=== PATIENT | female | born 1990 | race Caucasian/White ===

== ENCOUNTER 2018-07-26 11:20 | Emergency (ER) | payer OTHER ==
--- NOTE | 2018-07-26 12:54 | ED Physician Documentation ---
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 has had reaction to touching banana in the past.) Quality / character: Itchy. No: Discolored Improved by: No: Benadryl Associated symptoms: No: Fever, N/V/D Contributing factors: Exposed to food (has had similar reactions to banana since she was a child, even touching one.) Similar symptoms before: Diagnosis (allergy to bananas) Recently seen: Clinic ([place]. She states that a did not give any medication there but called the ambulance to have her transported to our facility. EMS reported her stable en route. She arrives here with adequate oxygenation, respirations, vital signs, and normal phonation.) Review of Systems Constitutional: denies: Fever, Chills Nose: denies: Rhinorrhea / runny nose Throat: denies: Sore throat Respiratory: reports: Dyspnea. denies: Cough GI: denies: Nausea, Vomiting, Diarrhea Skin: denies: Rash, Lesions PD PAST MEDICAL HISTORY - Past Medical History Cardiovascular: None Respiratory: None Neuro: None - Present Medications Home Medications: Ambulatory Orders Medication Instructions Recorded Confirmed Cetirizine [ZyrTEC] 10 mg PO DAILY #5 tablet 07/26/18 Dexamethasone [Decadron] 4 mg PO DAILY #5 tablet 07/26/18 - Allergies Allergies/Adverse Reactions: Allergies Allergy/AdvReac Type Severity Reaction Status Date / Time banana Allergy Respiratory Verified 07/26/18 11:35 PD ED PE NORMAL - Vitals Vital signs reviewed: Yes - General General: Alert and oriented X 3, No acute distress, Well developed/nourished, Other (normal voice sound) - HEENT HEENT: Moist mucous membranes, Pharynx benign (no uvular edema nor swelling of tongue/lips. ) - Neck Neck: Supple, no meningeal sign, No adenopathy - Cardiac Cardiac: RRR, No murmur - Respiratory Respiratory: Clear bilaterally - Derm Derm: Normal color, Warm and dry, No rash - Extremities Extremities: Normal ROM s pain, No edema - Neuro Neuro: Alert and oriented X 3, No motor deficit, Normal speech Results - Vitals Vitals: Vital Signs - 24 hr 07/26/18 07/26/18 07/26/18 11:33 13:34 14:40 Temperature 36.5 C 36.7 C Heart Rate 85 68 64 Respiratory 20 16 16 Rate Blood Pressure 131/76 H 133/97 H 115/63 O2 Saturation 100 100 99 07/26/18 15:08 Temperature 36.4 C L Heart Rate 61 Respiratory 16 Rate Blood Pressure 116/73 O2 Saturation 99 Oxygen O2 Source Room air PD MEDICAL DECISION MAKING - ED course Complexity details: re-evaluated patient (she says she feels better post meds and stays okay in ER. ), considered differential (presumed allergy reaction, though no hives seen (itching subjective) and no uvular edema, but feeling of throat swelling lower. Can treat as allergy reaction and had not improved with Benadryl, so can give epi/steroid. ), d/w patient - Sepsis Event Vital Signs: Vital Signs - 24 hr 07/26/18 07/26/18 07/26/18 11:33 13:34 14:40 Temperature 36.5 C 36.7 C Heart Rate 85 68 64 Respiratory 20 16 16 Rate Blood Pressure 131/76 H 133/97 H 115/63 O2 Saturation 100 100 99 07/26/18 15:08 Temperature 36.4 C L Heart Rate 61 Respiratory 16 Rate Blood Pressure 116/73 O2 Saturation 99 Oxygen O2 Source Room air Departure - Departure Disposition: 01 Home, Self Care Clinical Impression: Acute allergic reaction Qualifiers: Encounter type: initial encounter Qualified Code(s): T78.40XA - Allergy, unspecified, initial encounter Condition: Stable Record reviewed to determine appropriate education?: Yes Instructions: ED Allergic React Food Follow-Up: LYRIC MAST [Primary Care Provider] - Prescriptions: Cetirizine [ZyrTEC] 10 mg PO DAILY #5 tablet Dexamethasone [Decadron] 4 mg PO DAILY #5 tablet Comments: Continue some Benadryl every 6 hours if needed for itching or symptoms. Sometimes the immune reaction will continue at a low level for a day or 2. Commonly will do a long-acting antihistamine and some steroids for several days to inhibit that. Return if worse symptoms again. Forms: Activity restrictions Discharge Date/Time: 07/26/18 15:18
[2018-07-26] MEDS ORDERED: DEXAMETHASONE 10 MG/ML VIAL PO STA (13:20)
[2018-07-26] MEDS ORDERED: CETIRIZINE 10 MG TABLET PO STA (13:20)
[2018-07-26] MEDS ORDERED: EPINEPHrine 1 MG/ML AMP IM STA (13:20)
[2018-07-26] MEDS ORDERED: diphenhydrAMINE INJ 50 MG/ML VIAL IM STA (13:20)
[2018-07-26] MEDS ORDERED: CHERRY SYRUP 10 ML UDC PO ONE (13:23)
[2018-07-26 15:11] VITALS: BP 116/73
== END 2018-07-26 15:18 | disposition home or self-care (01) ==
LOC: ED 11:20
DX: T78.1XXA Other adverse food reactions, not elsewhere classified, initial encounter (principal); X58.XXXA Exposure to other specified factors, initial encounter
CPT/HCPCS: 96372; 99283; A9270; J1200

== ENCOUNTER 2020-04-03 13:30 | Outpatient (CLI) | payer OTHER | END 2020-04-03 13:31 | disposition EMS.NT | LOC: EMS 13:30 | PROVIDERS: ATTEND Surgery | DX: M79.631 Pain in right forearm (principal); M54.89 Other dorsalgia; V43.62XA Car passenger injured in collision with other type car in traffic accident, initial encounter; Y92.411 Interstate highway as the place of occurrence of the external cause ==

== ENCOUNTER 2020-04-03 14:18 | Emergency (ER) | payer OTHER ==
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
[2020-04-03 15:52] VITALS: BP 122/83
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
== END 2020-04-03 16:36 | disposition home or self-care (01) ==
LOC: ED 14:18
DX: S46.911A Strain of unspecified muscle, fascia and tendon at shoulder and upper arm level, right arm, initial encounter (principal); V49.40XA Driver injured in collision with unspecified motor vehicles in traffic accident, initial encounter; Y93.89 Activity, other specified
CPT/HCPCS: 29105; 71046; 99284

== ENCOUNTER 2023-10-14 12:27 | Emergency (ER) | payer OTHER ==
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
[2023-10-14 14:41] VITALS: BP 130/88; O2SAT 98
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
== END 2023-10-14 14:36 | disposition home or self-care (01) ==
LOC: ED 12:27
DX: S83.92XA Sprain of unspecified site of left knee, initial encounter (principal); W10.9XXA Fall (on) (from) unspecified stairs and steps, initial encounter; Y93.01 Activity, walking, marching and hiking
CPT/HCPCS: 99283

== ENCOUNTER 2024-02-28 07:59 | Outpatient (CLI) | payer OTHER ==
--- NOTE | 2024-02-28 14:20 | MRI Report ---
PROCEDURE: Knee LT WO INDICATIONS: LEFT KNEE PAIN TECHNIQUE: Noncontrast sagittal PD fast spin echo and T2 fast spin echo with fat saturation, sagittal 3-D gradie nt sequence with fat saturation; coronal T1 spin echo and PD fast spin echo with fat saturation, and axial PD fast spin echo with fat saturation through the knee. COMPARISON: Left knee radiograph dated 10/14/2023. FINDINGS: Image quality: Excellent. Menisci: The medial and lateral menisci demonstrate normal morphology and internal signal. The meni scal root ligaments appear intact. Cruciate ligaments: The anterior and posterior cruciate ligaments appear intact. Medial structures: The medial collateral ligament appears intact. Visualized portions of the pes ans erinus tendons appear normal. No abnormal bursal fluid. Lateral structures: The lateral collateral ligament is thickened at its femoral insertion. The long and short heads of the biceps femoris tendon appear intact. The popliteus tendon appears normal. Rocio otibial band appears normal. Anterior structures: Distal quadriceps tendinosis at its superior patella insertion is seen. Proximal patella tendinosis at its inferior patellar insertion is also noted. Patellar alignment is normal. No femoral trochlear dysplasia or ventral trochlear prominence. No edema in the infrapatellar fat pa d. Bones and cartilage: No bone marrow contusions or fractures. Low-grade chondromalacia in medial femo ral tibial compartment and lateral facet of patella cartilage is seen. Joint space: There is small knee joint fluid. No Kumar's cyst. Normal appearing synovial plicae ar e incidentally noted. IMPRESSION: 1. No evidence of focal meniscal tear. 2. The cruciate ligaments are intact. 3. Low-grade proximal LCL sprain. 4. Distal quadriceps tendinosis and proximal patella tendinosis. 5. No marrow edema. No fracture or dislocation. Low-grade chondromalacia in medial femoral tibial com partment and lateral patella cartilage is seen. Small joint effusion, no gross loose bodies. Reviewed by: Vasile Vigil MD on 02/28/2024 2:18 PM PDT Approved by: Vasile Vigil MD on 02/28/2024 2:18 PM PDT Station ID: [id number]
== END 2024-02-28 08:00 | disposition home or self-care (01) ==
LOC: DI 07:59
PROVIDERS: ATTEND Orthopaedic Surgery
DX: S83.422A Sprain of lateral collateral ligament of left knee, initial encounter (principal); M67.962 Unspecified disorder of synovium and tendon, left lower leg